=== PATIENT | female | born 1970 | race African-American/Black ===

== ENCOUNTER 2016-11-05 09:58 | Emergency (ER) | payer BC, OTHER ==
[~2016-11-05] VITALS: Ht 170.2 cm; Wt 80.0 kg
[2016-11-05] MEDS ORDERED: LISI-186 PO (10:08)
[2016-11-05] MEDS ORDERED: AMLO5TAB4 PO (10:08)
[2016-11-05] MEDS ORDERED: KETOROLAC 60MG/2ML VIAL IM STA (15:02)
[2016-11-05 15:40] LABS: CLARITY URINE CLEAR (CLEAR); COLOR URINE YELLOW (YELLOW); GLUCOSE URINE NEGATIVE (NEGATIVE); KETONES URINE NEGATIVE (NEGATIVE); LEUKOCYTE ESTERASE URINE TRACE (NEGATIVE); NITRITE URINE POSITIVE (NEGATIVE); OCCULT BLOOD URINE TRACE (NEGATIVE); PH URINE >=9.0 (4.5-8.0); PROTEIN URINE TRACE (NEGATIVE); SPECIFIC GRAVITY URINE 1.011 (1.005-1.030); UROBILINOGEN URINE 0.2 E.U./dL (0.2-1.0)
[2016-11-05 15:59] LABS: BASOPHILS % 0.4 % (0.0-2.0); EOSINOPHILS % 0.1 % (0.0-5.0); HEMATOCRIT. 39.3 % (36.0-48.0); HEMOGLOBIN. 13.3 g/dL (12.0-16.0); LYMPHOCYTES % 10.4 % (20.0-50.0); MEAN CORPUSCULAR HEMOGLOBIN 29.2 pg (28.0-32.0); MEAN CORPUSCULAR VOLUME 86.4 fL (81.0-99.0); MEAN PLATELET VOLUME 8.4 fl (7.4-10.4); NEUTROPHILS % 81.1 % (40.0-76.0); PLATELET 275 x1000/uL (130-400); RED BLOOD CELL COUNT 4.55 mill/uL (4.2-5.4); RED CELL DISTRIBUTION WIDTH 14.8 % (11.6-14.6)
[2016-11-05 16:00] LABS: CHLORIDE 102 mEq/L (98-107)
[2016-11-05 16:05] LABS: CARBON DIOXIDE 27 mEq/L (21-32)
[2016-11-05 17:17] VITALS: BP 128/73
== END 2016-11-05 17:19 | disposition home or self-care (01) ==
LOC: ER 12:09
DX: N39.0 Urinary tract infection, site not specified (principal); I10 Essential (primary) hypertension; Z90.710 Acquired absence of both cervix and uterus
CPT/HCPCS: 36415; 80053; 81001; 81025; 85025; 96372; 99284; J1885